=== PATIENT | female | born 1985 | race Two or more races ===

== ENCOUNTER 2019-02-26 06:30 | Inpatient (IN) | payer MEDICAID ==
[~2019-02-26 06:30] MED LIST: Ropivacaine HCl/PF 200 ML IV ONE
[2019-02-26] MEDS ORDERED: Sodium Chloride 0.9% 10 ML Syringe FLUSH PRN (06:44)
[2019-02-26] MEDS: Lactated Ringers 1,000 ML IV SCH ×4 (08:50→19:25)
--- NOTE | 2019-02-26 10:36 | PCM.SN ---
- Free Text/Narrative Note: This is a 33-year-old female with 5 living with EDC of 03/09/19 was 38 weeks and 3/7 days. She comes in with spontaneous rupture membranes. She is followed in [place] by Dr. Ponce. Because of the weather she came to [place]. She's having contractions and clearly give fluid. She has no other concerns. She does have a history of gestational diabetes and is been taking insulin twice a day. Blood sugars and been under control according to the patient Objective-pedal heart tones reactive, cervix 2, 70 and high Assessmet-grand multipara in labor term. Gestational diabetes on insulin Plan review her chart from [place]. Check blood sugars every 2 hours and give her insulin if her blood sugar is over 140. Vaginal delivery anticipated.
[2019-02-26] MEDS ORDERED: Ropivacaine HCl/PF 200 ML IV ONE (11:00)
[2019-02-26] MEDS ORDERED: Ondansetron 4 MG/2 ML SDV IVPUSH PRN (12:07)
[2019-02-26] MEDS ORDERED: ePHEDrine 50 MG/ML SDV IVPUSH PRN (12:07)
[2019-02-26] MEDS ORDERED: Lactated Ringers 500 ML IV SCH (12:15)
--- NOTE | 2019-02-26 12:38 | PCM.SN ---
- Free Text/Narrative Note: ANESTHESIA OB SERVICE Date: 02/25/2019 Time: 1100 to 1154 Dx: 38wks+ Spontaneous Rupture - Labor Pain Rx: Placement of PCEA Labor Epidural Procedure: Placement of PCEA Labor Epidural I was called by the OB RN for placement of a labor epidural per the request of the patient and the physician. Her BMI 42 with a hx of 4 labor epidurals in the past with difficulty of placement with 2 of the 4 epidurals. She does have a h/o gestational HTN with her current diastolic above 95 and gestational DM type II. She states her pain at a 6/10 now. I did discuss the risks and benefits of the epidural including PDPH, chronic low back pain and incomplete or failure of the epidural. We did discuss the fact that she has had multiple labor epidurals in the past with difficulties and that it may not work the way we want it to. She is in complete understanding and wishes to proceed and a consent was obtained. Monitors: NIBP, heart rate, SpO2 and heart rate [FHR]. Her B/P is elevated. She has had over 600 ml's of IV fluid. See nursing notes for her vital signs and FHR. She is in the sitting position with her lumbar area prepped with Betadine solution which was allowed to dry. Using aseptic technique, I placed a sterile plastic drape on her back and the infiltrated in the L3-4 interspace with 1% Lidocaine plain using a 25 Ga. needle. I then inserted and advanced a Perifix 17 Ga. X 3.5 In. Tuohy Epidural Needle X 1 pass with a positive CONCHA at the 8 cm needle marking. No blood, CSF or paresthesia noted. I then passed a Perifix FX Epidural Catheter to a skin depth of 13 cm's without problems. I did a test dose of 4 ml's of 1.5% Lidocaine with Epi 1/200,000 without any problems. I then secured the catheter with a Op-Site dressing and tape. Her vital signs remained stable and the FHR was good. Once supine, I pushed a total of 8ml's of .2% Naropin in divided doses through the catheter without complications or patient complaints. I then started the PCEA pump with Naropin .2% plain at 10 ml's/hour. The lock-out was 4 ml's every 15 minutes and she was instructed on how to use the bolus button. She is stable and able to move her lower extremities equally. Her pain is a 1-2/10 if that. Thank you for using this service. Brian Gaspar CRNA Shweth[facility]
--- NOTE | 2019-02-26 17:26 | PCM.PNLD ---
Labor Progress Note - VS & Meds Vital Signs: Last Vital Signs Temp 97.7 F 02/26/19 16:00 Pulse 92 02/26/19 16:00 Resp 16 02/26/19 16:00 BP 140/84 02/26/19 16:00 Pulse Ox 100 02/26/19 16:00 Active Medications: Current Medications Ephedrine Sulfate (Ephedrine Sulfate) 5 mg IVPUSH ASDIRECTED PRN PRN Reason: Hypotension Lactated Ringer's (Ringers, Lactated) 1,000 mls @ 125 mls/hr IV ASDIRECTED RAQUEL Last Admin: 02/26/19 11:23 Dose: 125 mls/hr Lactated Ringer's (Ringers, Lactated) 1,000 mls @ 999 mls/hr IV BOLUS RAQUEL Oxytocin/Sodium Chloride (Pitocin In Ns 20 Units/1,000 Ml) 20 unit in 1,000 mls @ 6 mls/hr IV TITRATE RAQUEL; Protocol Last Titration: 02/26/19 16:41 Dose: 6 munits/min, 18 mls/hr Ondansetron HCl (Zofran) 4 mg IVPUSH Q6H PRN PRN Reason: Nausea/Vomiting Last Admin: 02/26/19 12:49 Dose: 4 mg Sodium Chloride (Saline Flush) 10 ml FLUSH ASDIRECTED PRN PRN Reason: Keep Vein Open - Uterine Contractions Uterine Monitoring Mode: External [place] Contraction Frequency (min): irregular Contraction Duration (sec): 50-130 Contraction Intensity: Mild Uterine Resting Tone: Soft - Vaginal Exam Dilation (cm): 6 Effacement (Percent): 80 Station: -1 Cervical Position: Midposition Sterile Vaginal Exam Performed By: Fabi Briceño Vaginal Exam Comment: cervix and presenting part are too high for examiner to reach seeping clear fluid - Labor Progress (Free Text) Labor Progress: Good heart tones. Had one or 2 variables but they have disappeared with fluids. She's now on Pitocin since she's not progressing like she should. Anticipate vaginal delivery.
--- NOTE | 2019-02-26 20:37 | PCM.DEL ---
L & D Note - General Info Date of Service: 02/26/19 - Delivery Note Labor: Augmented by Oxytocin Delivery Outcome: Livebirth Presentation: Left Occiput Anterior (FREDDIE) Nuchal Cord: Present (X1 reduced) Anesthesia Type: Epidural Amniotic Fluid Description: Clear Episiotomy Type: None Laceration: None Cord: 3 Vessels Resuscitation Needed: No [place]: Suctioned Delivery Comments (Free Text/Narrative):: Blood loss less than 500 with no tears. Nuchal cord 1. Positions FREDDIE. Sugars were checked every 2 hours and there from 80-100 with no treatment. - General Info Date of Service: 02/26/19 - Patient Data Vitals - Most Recent: Last Vital Signs Temp 97.7 F 02/26/19 16:00 Pulse 92 02/26/19 16:00 Resp 16 02/26/19 16:00 BP 140/84 02/26/19 16:00 Pulse Ox 100 02/26/19 16:00 Weight - Most Recent: 229 lb I&O - Last 24 Hours: Intake & Output 02/26/19 02/26/19 02/26/19 06:59 14:59 22:59 Output Total 200 Balance -200 Lab Results Last 24 Hours: Laboratory Results - last 24 hr 02/26/19 Range/Units 06:56 POC Glucose 96 (80-116) mg/dL Med Orders - Current: Current Medications Acetaminophen/Codeine Phosphate (Tylenol With Codeine No.3 300mg/30mg) 1 tab PO Q4H PRN PRN Reason: Pain (moderate 4-6) Ephedrine Sulfate (Ephedrine Sulfate) 5 mg IVPUSH ASDIRECTED PRN PRN Reason: Hypotension Lactated Ringer's (Ringers, Lactated) 1,000 mls @ 125 mls/hr IV ASDIRECTED RAQUEL Last Admin: 02/26/19 19:25 Dose: 150 mls/hr Lactated Ringer's (Ringers, Lactated) 1,000 mls @ 999 mls/hr IV BOLUS RAQUEL Oxytocin/Sodium Chloride (Pitocin In Ns 20 Units/1,000 Ml) 20 unit in 1,000 mls @ 6 mls/hr IV TITRATE RAQUEL; Protocol Last Titration: 02/26/19 18:45 Dose: 2 munits/min, 6 mls/hr Ibuprofen (Motrin) 800 mg PO Q8H PRN PRN Reason: Pain Ondansetron HCl (Zofran) 4 mg IVPUSH Q6H PRN PRN Reason: Nausea/Vomiting Last Admin: 02/26/19 12:49 Dose: 4 mg Multivit/Folic Acid/Iron (-U) 1 each PO DAILY RAQUEL Sodium Chloride (Saline Flush) 10 ml FLUSH ASDIRECTED PRN PRN Reason: Keep Vein Open - Problem List & Annotations (1) Vaginal delivery SNOMED Code(s): 814226649 Code(s): O80 - ENCOUNTER FOR FULL-TERM UNCOMPLICATED DELIVERY Status: Acute Current Visit: Yes (2) Gestational diabetes SNOMED Code(s): 88199582 Code(s): O24.419 - GESTATIONAL DIABETES MELLITUS IN , UNSP CONTROL Status: Acute Current Visit: Yes - Problem List Review Problem List Initiated/Reviewed/Updated: Yes - My Orders Last 24 Hours: My Active Orders 02/26/19 06:44 Communication Order [RC] ASDIRECTED Notify Provider [RC] PRN Sodium Chloride 0.9% [Saline Flush] 10 ml FLUSH ASDIRECTED PRN Saline Lock Insert [OM.PC] Routine 02/26/19 06:45 Notify Provider Vital Signs [RC] PRN 02/26/19 08:00 Accu Check [Blood Glucose Check, Bedside] [RC] Q2HR 02/26/19 08:30 Lactated Ringers [Ringers, Lactated] 1,000 ml IV ASDIRECTED 02/26/19 14:59 Communication Order [RC] ASDIRECTED Communication Order [RC] ASDIRECTED Notify Provider [RC] STAT 02/26/19 15:15 Oxytocin/Normal Saline [Pitocin in NS 20 Units/1,000 ML] 20 unit in 1,000 ml IV TITRATE 02/26/19 20:30 May Shower [RC] ASDIRECTED Up ad Bebe [RC] ASDIRECTED GLUCOSE FASTING [CHEM] Routine Acetaminophen/Codeine [Tylenol with Codeine No.3 300MG/30MG] 1 tab PO Q4H PRN Ibuprofen [Motrin] 800 mg PO Q8H PRN Assess Lochia [WOMSER] Per Unit Routine Assess Uterine Involution [WOMSER] Per Unit Routine Breast Pump [WOMSER] Per Unit Routine Resuscitation Status Routine 02/26/19 20:31 Patient Status [ADT] Routine Vital Signs [RC] PFP 02/26/19 20:32 Ice Therapy [OM.PC] Per Unit Routine Perineal Care [OM.PC] Per Unit Routine 02/26/19 20:33 Peripheral IV Discontinue [OM.PC] Routine 02/26/19 Dinner Regular Diet [DIET] 02/27/19 05:11 HEMOGLOBIN/HEMATOCRIT,HH [HEME] AM 02/27/19 06:00 GLUCOSE FASTING [CHEM] Routine 02/27/19 09:00 Vit/FA/Fe Fumarate [-U] 1 each PO DAILY
[2019-02-26] MEDS: Acetaminophen/Codeine 300-30 MG Tab PO PRN (22:01)
[2019-02-27] MEDS: Acetaminophen/Codeine 300-30 MG Tab PO PRN ×3 (03:14→19:57)
[2019-02-27] MEDS: Ibuprofen 800 MG Tab PO PRN (06:23)
--- NOTE | 2019-02-27 08:34 | PCM.PN ---
- General Info Date of Service: 02/27/19 Subjective Update: patient states she has frequent urination. She says she urinates every hour. This been going on for and before. She has no dysuria or pyuria. She just feels like she has to go. She occasionally has low stress in comments are very rarely. She says her vaginal bleeding slowing. She has no fevers or chills and feels good. - Patient Data Vitals - Most Recent: Last Vital Signs Temp 98 F 02/27/19 00:00 Pulse 88 02/27/19 03:15 Resp 16 02/27/19 03:15 BP 145/83 H 02/27/19 03:15 Pulse Ox 100 02/26/19 22:00 Weight - Most Recent: 229 lb I&O - Last 24 Hours: Intake & Output 02/26/19 02/27/19 02/27/19 22:59 06:59 14:59 Intake Total 5125 Output Total 1000 Balance 4125 Lab Results Last 24 Hours: Laboratory Results - last 24 hr 02/26/19 02/26/19 02/26/19 Range/Units 09:56 12:08 14:13 Hgb (11.5-15.5) g/dL Hct (30.0-51.3) % POC Glucose 82 93 112 (80-116) mg/dL Fasting Glucose (80-116) mg/dL 02/26/19 02/26/19 02/27/19 Range/Units 16:21 18:13 06:15 Hgb 11.2 L (11.5-15.5) g/dL Hct 32.7 (30.0-51.3) % POC Glucose 83 76 L (80-116) mg/dL Fasting Glucose (80-116) mg/dL 02/27/19 Range/Units 06:15 Hgb (11.5-15.5) g/dL Hct (30.0-51.3) % POC Glucose (80-116) mg/dL Fasting Glucose 114 (80-116) mg/dL Med Orders - Current: Current Medications Acetaminophen/Codeine Phosphate (Tylenol With Codeine No.3 300mg/30mg) 1 tab PO Q4H PRN PRN Reason: Pain (moderate 4-6) Last Admin: 02/27/19 03:14 Dose: 1 tab Ibuprofen (Motrin) 800 mg PO Q8H PRN PRN Reason: Pain Last Admin: 02/27/19 06:23 Dose: 800 mg Multivit/Folic Acid/Iron (-U) 1 each PO DAILY RAQUEL Discontinued Medications Ephedrine Sulfate (Ephedrine Sulfate) 5 mg IVPUSH ASDIRECTED PRN PRN Reason: Hypotension Lactated Ringer's (Ringers, Lactated) 1,000 mls @ 125 mls/hr IV ASDIRECTED RAQUEL Last Admin: 02/26/19 19:25 Dose: 150 mls/hr Lactated Ringer's (Ringers, Lactated) 1,000 mls @ 999 mls/hr IV BOLUS RAQUEL Oxytocin/Sodium Chloride (Pitocin In Ns 20 Units/1,000 Ml) 20 unit in 1,000 mls @ 6 mls/hr IV TITRATE RAQUEL; Protocol Last Titration: 02/26/19 18:45 Dose: 2 munits/min, 6 mls/hr Ondansetron HCl (Zofran) 4 mg IVPUSH Q6H PRN PRN Reason: Nausea/Vomiting Last Admin: 02/26/19 12:49 Dose: 4 mg Sodium Chloride (Saline Flush) 10 ml FLUSH ASDIRECTED PRN PRN Reason: Keep Vein Open - Exam General: Alert, Oriented, Cooperative GI/Abdominal Exam: Other (fundus firm.) Extremities: No Pedal Edema Sepsis Event Note - Evaluation Sepsis Screening Result: No Definite Risk - Focused Exam Vital Signs: Vital Signs Temp Pulse Resp BP Pulse Ox 02/27/19 03:15 88 16 145/83 H 02/27/19 00:00 98 F 86 18 138/79 02/26/19 22:00 100 16 148/80 H 100 02/26/19 21:45 91 18 148/82 H 99 02/26/19 21:30 107 H 18 159/88 H 99 02/26/19 21:15 99 18 155/95 H 99 02/26/19 21:00 102 H 19 158/91 H 100 02/26/19 20:45 98.5 F 106 H 16 148/82 H 100 Date Exam was Performed: 02/27/19 Time Exam was Performed: 08:32 - Problem List & Annotations (1) Vaginal delivery SNOMED Code(s): 372537684 Code(s): O80 - ENCOUNTER FOR FULL-TERM UNCOMPLICATED DELIVERY Status: Acute Current Visit: Yes (2) Gestational diabetes SNOMED Code(s): 36174720 Code(s): O24.419 - GESTATIONAL DIABETES MELLITUS IN , UNSP CONTROL Status: Acute Current Visit: Yes - Problem List Review Problem List Initiated/Reviewed/Updated: Yes - My Orders Last 24 Hours: My Active Orders 02/26/19 20:30 May Shower [RC] ASDIRECTED Up ad Bebe [RC] ASDIRECTED Acetaminophen/Codeine [Tylenol with Codeine No.3 300MG/30MG] 1 tab PO Q4H PRN Ibuprofen [Motrin] 800 mg PO Q8H PRN Assess Lochia [WOMSER] Per Unit Routine Assess Uterine Involution [WOMSER] Per Unit Routine Breast Pump [WOMSER] Per Unit Routine Resuscitation Status Routine 02/26/19 20:31 Patient Status [ADT] Routine Vital Signs [RC] 00,08,16 02/26/19 20:32 Ice Therapy [OM.PC] Per Unit Routine Perineal Care [OM.PC] Per Unit Routine 02/26/19 20:33 Peripheral IV Discontinue [OM.PC] Routine 02/26/19 Dinner Regular Diet [DIET] 02/27/19 09:00 Vit/FA/Fe Fumarate [-U] 1 each PO DAILY - Plan Plan:: check UA today. Continue current orders.
[2019-02-27] MEDS: Prenatal Multivitamin with Calcium/Folic Acid/Fe Fumarate Cap PO SCH (09:11)
[2019-02-27] MEDS: Cephalexin 500 MG Cap PO SCH ×2 (15:38→20:26)
[2019-02-27] MEDS ORDERED: FLU Vacc QS2019-20(6MOS+)/PF 60 MCG/0.5 ML SYRINGE IM ONE (17:00)
--- NOTE | 2019-02-28 07:50 | PCM.PN ---
- General Info Date of Service: 02/28/19 Admission Dx/Problem (Free Text): Patient without complaints. She says her breast milk is coming in. She has no abdominal pain, fevers, chills. She is moving her bowels. And her vaginal bleeding is slowing. - Patient Data Vitals - Most Recent: Last Vital Signs Temp 98.9 F 02/28/19 00:00 Pulse 84 02/28/19 00:00 Resp 16 02/28/19 00:00 BP 137/81 02/28/19 00:00 Pulse Ox 99 02/28/19 00:00 Weight - Most Recent: 229 lb Lab Results Last 24 Hours: Laboratory Results - last 24 hr 02/27/19 Range/Units 14:10 Urine Color Red (YELLOW) Urine Appearance Cloudy (CLEAR) Urine pH 5.0 (5.0-6.5) Ur Specific [place] 1.020 (1.010-1.025) Urine Protein 30 H (NEGATIVE) mg/dL Urine Glucose (UA) Normal (NORMAL) mg/dL Urine Ketones Negative (NEGATIVE) mg/dL Urine Occult Blood Large H (NEGATIVE) Urine Nitrite Negative (NEGATIVE) Urine Bilirubin Negative (NEGATIVE) Urine Urobilinogen Normal (NEGATIVE) mg/dL Ur Leukocyte Esterase Moderate H (NEGATIVE) Urine RBC >100 H (0-5) Urine WBC 10-20 H (0-5) Ur Squamous Epith Cells Few H (NS,R,O) Urine Bacteria Moderate H (NS) Med Orders - Current: Current Medications Acetaminophen/Codeine Phosphate (Tylenol With Codeine No.3 300mg/30mg) 1 tab PO Q4H PRN PRN Reason: Pain (moderate 4-6) Last Admin: 02/27/19 19:57 Dose: 1 tab Cephalexin (Keflex) 500 mg PO TID [facility] Last Admin: 02/27/19 20:26 Dose: 500 mg Ibuprofen (Motrin) 800 mg PO Q8H PRN PRN Reason: Pain Last Admin: 02/27/19 06:23 Dose: 800 mg Multivit/Folic Acid/Iron (-U) 1 each PO DAILY [facility] Last Admin: 02/27/19 09:11 Dose: 1 each Discontinued Medications Ephedrine Sulfate (Ephedrine Sulfate) 5 mg IVPUSH ASDIRECTED PRN PRN Reason: Hypotension Lactated Ringer's (Ringers, Lactated) 1,000 mls @ 125 mls/hr IV ASDIRECTED RAQUEL Last Admin: 02/26/19 19:25 Dose: 150 mls/hr Lactated Ringer's (Ringers, Lactated) 1,000 mls @ 999 mls/hr IV BOLUS RAQUEL Oxytocin/Sodium Chloride (Pitocin In Ns 20 Units/1,000 Ml) 20 unit in 1,000 mls @ 6 mls/hr IV TITRATE RAQUEL; Protocol Last Titration: 02/26/19 18:45 Dose: 2 munits/min, 6 mls/hr Influenza Virus Vaccine (Fluzone Quad Syringe) 60 mcg IM .ONCE ONE Stop: 02/27/19 17:01 Ondansetron HCl (Zofran) 4 mg IVPUSH Q6H PRN PRN Reason: Nausea/Vomiting Last Admin: 02/26/19 12:49 Dose: 4 mg Sodium Chloride (Saline Flush) 10 ml FLUSH ASDIRECTED PRN PRN Reason: Keep Vein Open - Exam General: Alert, Oriented, Cooperative Lungs: Normal Respiratory Effort GI/Abdominal Exam: Other (Her fundus is firm.) Extremities: No Pedal Edema Sepsis Event Note - Evaluation Sepsis Screening Result: No Definite Risk - Focused Exam Vital Signs: Vital Signs Temp Pulse Resp BP Pulse Ox 02/28/19 00:00 98.9 F 84 16 137/81 99 Date Exam was Performed: 02/28/19 Time Exam was Performed: 07:48 - Problem List & Annotations (1) Vaginal delivery SNOMED Code(s): 197723295 Code(s): O80 - ENCOUNTER FOR FULL-TERM UNCOMPLICATED DELIVERY Status: Acute Current Visit: Yes (2) Gestational diabetes SNOMED Code(s): 22024592 Code(s): O24.419 - GESTATIONAL DIABETES MELLITUS IN , UNSP CONTROL Status: Acute Current Visit: Yes (3) UTI (urinary tract infection) SNOMED Code(s): 23071232 Code(s): N39.0 - URINARY TRACT INFECTION, SITE NOT SPECIFIED Status: Acute Current Visit: Yes - Problem List Review Problem List Initiated/Reviewed/Updated: Yes - My Orders Last 24 Hours: My Active Orders 02/27/19 09:00 Vit/FA/Fe Fumarate [-U] 1 each PO DAILY 02/27/19 14:10 CULTURE URINE [RM] Routine 02/27/19 15:00 cephALEXin [Keflex] 500 mg PO TID 02/27/19 16:30 Influenza Vaccine Charge [RC] .DISCHARGE - Plan Plan:: Keflex for the UTI. UTI was definitely prehospitalization. Discharge to home and recheck in 6 weeks for check.
--- NOTE | 2019-02-28 07:54 | PCM.DCSUM1 ---
Discharge Summary - Hospital Course Free Text/Narrative:: Hospital course-after the delivery patient did well. She was treated with Motrin alone hydrocodone for pain. Bleeding slowed. Her blood sugar was under 126 fasting the next day. Hemoglobin was over 11. Patient no swelling and she is breast-feeding and that started to go well and her milk came down. We'll discharge her to home. Brief History: This is a 33-year-old female G6 para 5 was 38+ weeks comes in with spontaneous rupture membranes group B negative and delivers a healthy baby girl. He had a history of gestational diabetes and 2 shots a day. Her blood sugars were within normal limits with no insulin during labor. Diagnosis: Stroke: No - Discharge Data Discharge Date: 02/28/19 Discharge Disposition: Home, Self-Care 01 Condition: Good - Referral to Home Health Primary Care Physician: Mee Ponce MD - Discharge Diagnosis/Problem(s) (1) Vaginal delivery SNOMED Code(s): 493994008 ICD Code: O80 - ENCOUNTER FOR FULL-TERM UNCOMPLICATED DELIVERY Status: Acute Current Visit: Yes (2) Gestational diabetes SNOMED Code(s): 26467099 ICD Code: O24.419 - GESTATIONAL DIABETES MELLITUS IN , UNSP CONTROL Status: Acute Current Visit: Yes (3) UTI (urinary tract infection) SNOMED Code(s): 29409139 ICD Code: N39.0 - URINARY TRACT INFECTION, SITE NOT SPECIFIED Status: Acute Current Visit: Yes - Patient Instructions Diet: Regular Diet as Tolerated Activity: As Tolerated Driving: May Drive Today Showering/Bathing: May Shower Notify Provider of: Fever, Increased Pain, Drainage Other/Special Instructions: 1. Recheck in 6 weeks for check. 2. Glucose challenge 8-12 weeks. This is due to gestational diabetes. - Discharge Plan Prescriptions/Med Rec: cephALEXin [Keflex] 500 mg PO TID #15 cap Home Medications: Home Meds Vit/FA/Fe Fumarate [-U] 1 each PO DAILY cap 02/28/19 [Rx] cephALEXin [Keflex] 500 mg PO TID #15 cap 02/28/19 [Rx] Patient Handouts: Shaken Baby Syndrome, Taking Your Child's Temperature, Keeping Your Safe and Healthy, [id number], Well Flash Drier Operator, , and Self-Care, [id number], How To Prepare Infant Formula, Hand Washing, [id number], Home Care Instructions for Mom, SIDS Prevention Information, [id number], Care After Vaginal Delivery, and Cracked or Sore Nipples, [id number], Keeping Your Safe and Healthy, Rear-Facing Child Safety Seat - Discharge Summary/Plan Comment DC Time >30 min.: No - Patient Data Vitals - Most Recent: Last Vital Signs Temp 98.9 F 02/28/19 00:00 Pulse 84 02/28/19 00:00 Resp 16 02/28/19 00:00 BP 137/81 02/28/19 00:00 Pulse Ox 99 02/28/19 00:00 Weight - Most Recent: 229 lb Lab Results - Last 24 hrs: Laboratory Results - last 24 hr 02/27/19 Range/Units 14:10 Urine Color Red (YELLOW) Urine Appearance Cloudy (CLEAR) Urine pH 5.0 (5.0-6.5) Ur Specific [place] 1.020 (1.010-1.025) Urine Protein 30 H (NEGATIVE) mg/dL Urine Glucose (UA) Normal (NORMAL) mg/dL Urine Ketones Negative (NEGATIVE) mg/dL Urine Occult Blood Large H (NEGATIVE) Urine Nitrite Negative (NEGATIVE) Urine Bilirubin Negative (NEGATIVE) Urine Urobilinogen Normal (NEGATIVE) mg/dL Ur Leukocyte Esterase Moderate H (NEGATIVE) Urine RBC >100 H (0-5) Urine WBC 10-20 H (0-5) Ur Squamous Epith Cells Few H (NS,R,O) Urine Bacteria Moderate H (NS) Med Orders - Current: Current Medications Acetaminophen/Codeine Phosphate (Tylenol With Codeine No.3 300mg/30mg) 1 tab PO Q4H PRN PRN Reason: Pain (moderate 4-6) Last Admin: 02/27/19 19:57 Dose: 1 tab Cephalexin (Keflex) 500 mg PO TID [facility] Last Admin: 02/27/19 20:26 Dose: 500 mg Ibuprofen (Motrin) 800 mg PO Q8H PRN PRN Reason: Pain Last Admin: 02/27/19 06:23 Dose: 800 mg Multivit/Folic Acid/Iron (-U) 1 each PO DAILY [facility] Last Admin: 02/27/19 09:11 Dose: 1 each Discontinued Medications Ephedrine Sulfate (Ephedrine Sulfate) 5 mg IVPUSH ASDIRECTED PRN PRN Reason: Hypotension Lactated Ringer's (Ringers, Lactated) 1,000 mls @ 125 mls/hr IV ASDIRECTED RAQUEL Last Admin: 02/26/19 19:25 Dose: 150 mls/hr Lactated Ringer's (Ringers, Lactated) 1,000 mls @ 999 mls/hr IV BOLUS RAQUEL Oxytocin/Sodium Chloride (Pitocin In Ns 20 Units/1,000 Ml) 20 unit in 1,000 mls @ 6 mls/hr IV TITRATE RAQUEL; Protocol Last Titration: 02/26/19 18:45 Dose: 2 munits/min, 6 mls/hr Influenza Virus Vaccine (Fluzone Quad Syringe) 60 mcg IM .ONCE ONE Stop: 02/27/19 17:01 Ondansetron HCl (Zofran) 4 mg IVPUSH Q6H PRN PRN Reason: Nausea/Vomiting Last Admin: 02/26/19 12:49 Dose: 4 mg Sodium Chloride (Saline Flush) 10 ml FLUSH ASDIRECTED PRN PRN Reason: Keep Vein Open
[2019-02-28] MEDS: Ibuprofen 800 MG Tab PO PRN (08:45)
[2019-02-28] MEDS: Cephalexin 500 MG Cap PO SCH ×3 (08:46→19:05)
[2019-02-28] MEDS: Prenatal Multivitamin with Calcium/Folic Acid/Fe Fumarate Cap PO SCH (08:46)
[2019-02-28] MEDS: Acetaminophen/Codeine 300-30 MG Tab PO PRN (17:38)
== END 2019-02-28 18:57 | disposition home or self-care (01) | DRG 806 ==
LOC: FB.OBCHECK 06:30 → FB.OB 06:31 → FB.OBCHECK 06:43 → FB.OB 06:44
PROVIDERS: ADMIT Family Medicine; ATTEND Family Medicine
PROC: 10E0XZZ Delivery of Products of Conception, External Approach (ICD-10-PCS; principal; 2019-02-26)
PROC: 3E0R3BZ Introduction of Anesthetic Agent into Spinal Canal, Percutaneous Approach (ICD-10-PCS; 2019-02-26)
PROC: 00HU33Z Insertion of Infusion Device into Spinal Canal, Percutaneous Approach (ICD-10-PCS; 2019-02-26)
DX: O24.429 Gestational diabetes mellitus in childbirth, unspecified control (principal); O86.20 Urinary tract infection following delivery, unspecified; Z37.0 Single live birth; O69.81X0 Labor and delivery complicated by cord around neck, without compression, not applicable or unspecified; Z3A.38 38 weeks gestation of pregnancy
CPT/HCPCS: 36415; 51701; 59409; 81001; 82947; 82962; 85014; 85018; 87086; 90686; A9270-GY; J2405; J2590; J2795; J7120